=== PATIENT | female | born 1995 | race Caucasian/White ===

== ENCOUNTER 2018-10-12 08:40 | Inpatient (IN) | payer OTHER ==
[2018-10-12] MEDS ORDERED: LACTATED RINGERS 1,000 ML ONE ×2 (13:22→14:00)
[2018-10-12] MEDS ORDERED: MINERAL OIL PO PRN (14:14)
[2018-10-12] MEDS ORDERED: SUBLIMAZE IV PRN (14:14)
[2018-10-12] MEDS ORDERED: XYLOCAINE 2% INFILTRATI ONE (14:14)
[2018-10-12] MEDS ORDERED: BRETHINE IVP PRN (14:14)
[2018-10-12] MEDS ORDERED: BRETHINE SUB-Q PRN (14:14)
[2018-10-12 14:47] LABS: Hematocrit 37.1 % (30.3-42.9); Hemoglobin 12.3 gm/dl (10.1-14.3); Mean Corpuscular HGB Conc 33 % (30-34); Mean Corpuscular Volume 78 fl (79-97); Platelet Count 346 K/mm3 (140-440); Red Blood Count 4.79 M/mm3 (3.65-5.03); Red Cell Distribution Width 14.4 % (13.2-15.2)
[2018-10-12] MEDS ORDERED: PITOCin/NS 30 UNIT/500ML 30 UNITS/500 ML BAG IV SCH (15:00)
[2018-10-12] MEDS ORDERED: PITOCin/NS 20 UNIT/1000ML DRIP 20 UNITS/1,000 ML BAG IV SCH (15:00)
[2018-10-12] MEDS ORDERED: LACTATED RINGERS 1,000 ML IV SCH (15:00)
--- NOTE | 2018-10-12 17:09 | Ultrasound Report ---
PROCEDURE: US OB LIMITED TECHNIQUE: Limited obstetric ultrasound was performed to evaluate for presentation HISTORY: presentation COMPARISONS: None. FINDINGS: There is a single live intrauterine in cephalic presentation. heart rate is 154 bpm IMPRESSION: Single live intrauterine in cephalic presentation. This document is electronically signed by Tawnya Mena MD., October 12 2018 05:07:35 PM ET
[2018-10-12] MEDS ORDERED: fentaNYL-BUPIV 2 MCG/ML-0.125% 200 MCG/100 ML BAG EPIDURAL SCH (18:00)
[2018-10-12] MEDS ORDERED: NARCAN 2 MG/2 ML IV PRN (18:00)
--- NOTE | 2018-10-12 18:00 | Anesthesia Day of Surgery ---
Anesthesia Day of Surgery - Day of Surgery Patient Examined: Yes Patient H&P Reviewed: Yes Patient is NPO: Yes Beta Blockers: No Cardiac Clearance: No Pulmonary Clearance: No Arsen's Test: N/A
--- NOTE | 2018-10-12 18:00 | Anesthesia Consultation ---
Anesthesia Consult and Med Hx - Airway Anesthetic Teeth Evaluation: Good, Partials ROM Head & Neck: Adequate Mental/Hyoid Distance: Adequate Mallampati Class: Class I Intubation Access Assessment: Good - Pulmonary Exam CTA: Yes - Cardiac Exam Cardiac Exam: RRR - Pre-Operative Health Status ASA Pre-Surgery Classification: ASA2 Proposed Anesthetic Plan: Epidural - Pulmonary Hx Smoking: No Hx Asthma: No Hx Respiratory Symptoms: No SOB: No COPD: No Home Oxygen Therapy: No Hx Pneumonia: No - Cardiovascular System Hx Hypertension: No - Central Nervous System Hx Seizures: No Hx Psychiatric Problems: No - Endocrine Hx Renal Disease: No Hx Hypothyroidism: No Hx Hyperthyroidism: No - Hematic Hx Anemia: No Hx Sickle Cell Disease: No - Other Systems Hx Alcohol Use: No
[2018-10-12] MEDS ORDERED: MARCAINE 0.25% INFILTRATI ONE (18:19)
--- NOTE | 2018-10-12 21:50 | History and Physical Report ---
History of Present Illness Date of examination: 10/12/18 Date of admission: 10/12/18 13:00 Chief complaint: contractions History of present illness: 23y/o @ 41+0 weeks presents with regular uterine contractions. She denies leakage of fluid. The patient is a transfer of care @ 34 weeks ega. GBS negative. Past History Past Medical History: no pertinent history Past Surgical History: no surgical history Social history: - Obstetrical History Expected Date of Delivery: 10/05/18 Actual Gestation: 41 Week(s) 0 Day(s) : 2 Para: 1 Hx # Term Pregnancies: 1 Number of Pregnancies: 0 Spontaneous Abortions: 0 Induced : 0 Number of Living Children: 1 Medications and Allergies Allergies Allergy/AdvReac Type Severity Reaction Status Date / Time No Known Allergies Allergy Unverified 10/12/18 08:56 Active Meds: Active Medications Ephedrine Sulfate (Ephedrine Sulfate) 10 mg IV Q2M PRN PRN Reason: Hypotension Ephedrine Sulfate (Ephedrine Sulfate) 10 mg IV Q2M PRN PRN Reason: Hypotension Fentanyl (Sublimaze) 100 mcg IV Q2H PRN PRN Reason: Labor Pain Lactated Ringer's (Lactated Ringers) 1,000 mls @ 125 mls/hr IV DIRECT CANDE Oxytocin/Sodium Chloride (Pitocin/Ns 20 Unit/1000ml Drip) 20 units in 1,000 mls @ 125 mls/hr IV DIRECT CANDE Oxytocin/Sodium Chloride (Pitocin/Ns 30 Unit/500ml) 30 units in 500 mls @ 1 ml s/hr IV TITR CANDE; Protocol Fentanyl/Bupivacaine/Sodium Chlor (Fentanyl-Bupiv 2 Mcg/Ml-0.125%) 200 mcg in 100 mls @ 12 mls/hr EPIDURAL TITR CANDE; Protocol Last Admin: 10/12/18 18:30 Dose: 12 mls/hr Documented by: Mineral Oil (Mineral Oil) 30 ml PO QHS PRN PRN Reason: Constipation Naloxone HCl (Narcan 2 Mg/2 Ml) 0.2 mg IV Q5M PRN PRN Reason: Respiratory sedation Terbutaline Sulfate (Brethine) 0.25 mg SUB-Q ONCE PRN PRN Reason: Hyperstimulation/Hypertonicity Terbutaline Sulfate (Brethine) 0.25 mg IVP ONCE PRN PRN Reason: Hyperstimulation/Hypertonicity Review of Systems All systems: negative Genitourinary: contractions - Vital Signs Vital signs: Vital Signs Pulse BP 96 H 126/76 10/12/18 08:53 10/12/18 08:53 Temp Pulse Resp BP Pulse Ox 98.2 F 106 H 123/58 98 10/12/18 15:55 10/12/18 21:44 10/12/18 21:44 10/12/18 21:29 - Physical Exam Breasts: Positive: deferred Cardiovascular: Regular rate Lungs: Positive: Clear to auscultation Results Result Diagrams: 10/12/18 12:53 Abnormal lab results 10/12/18 Range/Units 12:53 WBC 11.2 H (4.5-11.0) K/mm3 MCV 78 L (79-97) fl MCH 26 L (28-32) pg All other labs normal. Assessment and Plan - Patient Problems (1) Active labor at term Current Visit: Yes Status: Acute Plan to address problem: admit to L&D
[2018-10-12] MEDS ORDERED: PHENERGAN PR PRN (21:52)
[2018-10-12] MEDS ORDERED: BENADRYL PO PRN (21:52)
[2018-10-12] MEDS ORDERED: TYLENOL PO PRN (21:52)
[2018-10-12] MEDS ORDERED: PHENERGAN PO PRN (21:52)
[2018-10-12] MEDS ORDERED: LANSINOH TP PRN (21:52)
[2018-10-12] MEDS ORDERED: DULCOLAX PR PRN (21:52)
[2018-10-12] MEDS ORDERED: ZOFRAN IV PRN (21:52)
[2018-10-12] MEDS ORDERED: TUCKS PAD TP PRN (21:52)
[2018-10-12] MEDS ORDERED: MILK OF MAGNESIA PO PRN (21:52)
--- NOTE | 2018-10-12 21:52 | Procedure Note ---
OB Delivery Note - Delivery Date of Delivery: 10/12/18 Surgeon: NITZA RAY Estimated blood loss: 300cc - Vaginal Delivery presentation: vertex Delivery position: OA Intrapartum events: none Delivery augmentation: pitocin Delivery monitor: external FHT Route of delivery: Delivery placenta: spontaneous Delivery cord: nuchal cord, 3 umbilical vessels Episiotomy: none Delivery laceration: none Anesthesia: epidural Delivery comments: The patient progressed to complete complete +2 and pushed to deliver a liveborn male infant with Apgars of 7 and 9 weight 8 lbs. 5 oz. After delivery of the head a nuchal cord 1 was manually reduced. The shoulders delivered without difficulty. The was bulb suction. The cord was clamped cut and the was placed on the warmer for further evaluation. The placenta delivered spontaneously intact with three-vessel cord. The patient did not sustain any lacerations. Estimated blood loss of 300 mL - Infant A at 1 minute: 7 at 5 minutes: 9 Gender: Male (weight 8 lbs. 5 oz.)
[2018-10-12] MEDS ORDERED: SODIUM CHLORIDE FLUSH SYRINGE 10 ML IV NR (22:00)
[2018-10-12] MEDS: IBUPROFEN PO SCH (22:57)
[2018-10-13] MEDS: IBUPROFEN PO SCH ×3 (05:58→20:02)
[2018-10-13] MEDS: NORCO 5/325 PO PRN (09:10)
[2018-10-13 14:25] LABS: Hematocrit 32.2 % (30.3-42.9)
--- NOTE | 2018-10-13 19:19 | Progress Note ---
Assessment and Plan PPD 1 s/p . Doing well. Plan for discharge on tomorrow if all is well with the baby. Subjective - Subjective Date of service: 10/13/18 Principal diagnosis: Patient reports: appetite normal, voiding normally, pain well controlled, ambulating normally : doing well Objective - Vital Signs Latest vital signs: Vital Signs Temp Pulse Resp BP BP Pulse Ox 10/13/18 16:50 98.2 F 81 20 115/43 10/13/18 09:30 98.1 F 95 H 20 115/66 10/13/18 09:10 20 10/13/18 05:27 98.5 F 80 18 100/52 97 10/13/18 01:24 98.4 F 89 18 114/63 98 10/12/18 22:40 98 H 111/59 10/12/18 22:35 108 H 121/55 10/12/18 22:30 103 H 114/64 10/12/18 22:25 103 H 122/59 10/12/18 22:20 99 H 135/60 10/12/18 22:16 110 H 124/56 10/12/18 22:12 105 H 111/66 10/12/18 22:03 115 H 134/68 10/12/18 22:00 97.7 F 10/12/18 21:55 111 H 116/58 10/12/18 21:50 113 H 119/56 10/12/18 21:45 120 H 121/55 10/12/18 21:44 106 H 123/58 10/12/18 21:31 129 H 121/83 10/12/18 21:29 116 H 98 10/12/18 21:26 121 H 120/63 10/12/18 21:24 124 H 97 10/12/18 21:20 107 H 122/63 10/12/18 21:19 119 H 97 10/12/18 21:15 108 H 127/67 10/12/18 21:14 118 H 98 10/12/18 21:11 122 H 120/58 10/12/18 21:09 112 H 97 10/12/18 21:06 104 H 121/62 10/12/18 21:04 112 H 97 10/12/18 21:01 114 H 124/65 10/12/18 20:59 109 H 98 10/12/18 20:55 133 H 146/81 10/12/18 20:54 125 H 97 10/12/18 20:50 150 H 115/57 10/12/18 20:49 126 H 97 10/12/18 20:46 110 H 115/59 10/12/18 20:44 104 H 97 10/12/18 20:40 106 H 131/72 10/12/18 20:39 128 H 98 10/12/18 20:36 111 H 129/73 10/12/18 20:34 115 H 97 10/12/18 20:30 117 H 117/66 10/12/18 20:29 102 H 98 10/12/18 20:26 106 H 124/74 10/12/18 20:24 106 H 98 10/12/18 20:21 114 H 118/58 10/12/18 20:19 105 H 98 10/12/18 20:15 107 H 129/73 10/12/18 20:14 106 H 97 10/12/18 20:11 107 H 114/69 10/12/18 20:09 102 H 98 10/12/18 20:06 103 H 131/69 10/12/18 20:04 101 H 97 10/12/18 20:00 110 H 127/72 10/12/18 19:59 99 H 99 10/12/18 19:56 97 H 123/74 10/12/18 19:54 102 H 99 10/12/18 19:50 109 H 116/55 10/12/18 19:49 114 H 99 10/12/18 19:45 116 H 124/61 10/12/18 19:44 107 H 99 10/12/18 19:40 103 H 120/60 10/12/18 19:39 111 H 99 10/12/18 19:35 108 H 110/70 10/12/18 19:34 101 H 98 10/12/18 19:30 114 H 111/61 10/12/18 19:29 114 H 99 10/12/18 19:25 107 H 122/62 10/12/18 19:24 106 H 99 10/12/18 19:21 96 H 120/60 10/12/18 19:19 100 H 98 Intake and Output 10/13/18 10/13/18 10/13/18 06:59 14:59 22:59 Intake Total 320 360 Balance 320 360 Intake: Oral 320 360 Other: Total, Intake Amount 320 360 # Voids Void 1 1 - Exam Breasts: Present: deferred Cardiovascular: Present: Regular rate, Normal S1, Normal S2 Lungs: Present: Clear to auscultation, Normal air movement Abdomen: Present: normal appearance, soft, normal bowel sounds Uterus: Present: normal, firm Extremities: Present: normal Deep Tendon Reflex Grade: Normal +2
--- NOTE | 2018-10-13 19:21 | Discharge Summary ---
Providers - Providers Date of Admission: 10/12/18 13:00 Date of discharge: 10/14/18 Attending physician: SOFIYA MARTINEZ Primary care physician: SOFIYA MARTINEZ Hospitalization Reason for admission: active labor Delivery: Episiotomy: none Laceration: none complications: none Discharge diagnosis: IUP at term delivered baby: male Hospital course: unremarkable Condition at discharge: Good Disposition: DC-01 TO HOME OR SELFCARE Plan - Discharge Medications Prescriptions: Ibuprofen [Motrin] 800 mg PO Q8HR PRN #40 tablet PRN Reason: Pain, Moderate (4-6) - Provider Discharge Summary Activity: routine, no sex for 6 weeks, no heavy lifting 4 weeks, no strenuous exercise Diet: routine Instructions: routine Additional instructions: [] Smoking cessation referral if applicable(refer to patient education folder for contact #) [] Refer to [facility]'s [facility] Booklet Call your doctor immediately for: * Fever > 100.5 * Heavy vaginal bleeding ( >1 pad per hour) * Severe persistent headache * Shortness of breath * Reddened, hot, painful area to leg or breast * Drainage or odor from incision. * Keep incision clean and dry at all times and follow doctor's instructions regarding bathing/showering - Follow up plan Follow up: SOFIYA MARTINEZ MD [Primary Care Provider] - 6 Weeks
[2018-10-14] MEDS: NORCO 5/325 PO PRN ×2 (00:54→11:17)
[2018-10-14] MEDS: IBUPROFEN PO SCH ×2 (06:35→12:52)
[2018-10-14 17:18] VITALS: BP 116/71
== END 2018-10-14 14:25 | disposition home or self-care (01) | DRG 807 ==
LOC: TRG 08:40 → LD 13:00 → OB 23:43
PROVIDERS: ADMIT Obstetrics & Gynecology; ATTEND Obstetrics & Gynecology
PROC: 10E0XZZ Delivery of Products of Conception, External Approach (ICD-10-PCS; principal; 2018-10-12)
PROC: 3E0R3BZ Introduction of Anesthetic Agent into Spinal Canal, Percutaneous Approach (ICD-10-PCS; 2018-10-12)
PROC: 00HU33Z Insertion of Infusion Device into Spinal Canal, Percutaneous Approach (ICD-10-PCS; 2018-10-12)
DX: O69.81X0 Labor and delivery complicated by cord around neck, without compression, not applicable or unspecified (principal); Z37.0 Single live birth; Z3A.41 41 weeks gestation of pregnancy
CPT/HCPCS: 36415; 76815; 85014; 85018; 85027; 86592; 86850; 86900; 86901; G0378; J2590; J3010; J7120